=== PATIENT | male | born 1980 | race Caucasian/White ===

== ENCOUNTER 2018-06-25 18:12 | Emergency (ER) | payer BC ==
[~2018-06-25] VITALS: Ht 177.8 cm; Wt 141.1 kg
[2018-06-25 18:15] VITALS: BP 142/90
--- NOTE | 2018-06-25 18:17 | NUR ---
38/M C/O STUCK QTIP TO RT EAR DURING CLEANING HIS EARS TODAY. DENIES HEARING LOSS. C/O MILD EARACHE. PMH: ASTHMA
--- NOTE | 2018-06-25 19:39 | NUR ---
Patient discharged with v/s stable. Written and verbal after care instructions given and explained BY DR MARCUS. Patient verbalized understanding. Ambulatory with steady gait. All questions addressed prior to discharge. Advised to follow up with PMD.
[2018-06-25 19:40] VITALS: BP 130/78
== END 2018-06-25 19:39 | disposition home or self-care (01) ==
LOC: MED 18:12
DX: T16.1XXA Foreign body in right ear, initial encounter (principal); R51 Headache; J45.909 Unspecified asthma, uncomplicated; X58.XXXA Exposure to other specified factors, initial encounter
CPT/HCPCS: 69200; 99284

== ENCOUNTER 2022-04-12 20:26 | Emergency (ER) | payer OTHER ==
[~2022-04-12] VITALS: Ht 172.7 cm; Wt 128.8 kg
[2022-04-12 20:45] VITALS: BP 139/88
--- NOTE | 2022-04-12 20:53 | NUR ---
pt to lobby
--- NOTE | 2022-04-13 00:21 | NUR ---
pt ambulated to chair c
[2022-04-13 00:25] VITALS: BP 152/95
--- NOTE | 2022-04-13 00:26 | NUR ---
pt reports 9/10 lt shoulder and lt knee pain, increased from traige. Dr. Márquez made aware of patient condition.
[2022-04-13] MEDS ORDERED: KETOROLAC 30 MG/ML VIAL IM ONE (00:30)
--- NOTE | 2022-04-13 00:38 | NUR ---
Patient being evaluated by physician at bedside.
[2022-04-13] MEDS ORDERED: NAPR-54 PO (00:58)
[2022-04-13] MEDS ORDERED: CYCL-711 PO (00:58)
--- NOTE | 2022-04-13 01:03 | NUR ---
Patient discharged with v/s stable. Written and verbal after care instructions given and explained. Patient alert, oriented and verbalized understanding of instructions. Ambulatory with steady gait. All questions addressed prior to discharge. ID band removed. Patient advised to follow up with PMD. Rx of FLEXERIL AND NAPROSYN given. Patient educated on indication of medication including possible reaction and side effects. Opportunity to ask questions provided and answered.
== END 2022-04-13 01:03 | disposition home or self-care (01) ==
LOC: MED 20:26
DX: S46.912A Strain of unspecified muscle, fascia and tendon at shoulder and upper arm level, left arm, initial encounter (principal); S83.92XA Sprain of unspecified site of left knee, initial encounter; J45.909 Unspecified asthma, uncomplicated; Z98.890 Other specified postprocedural states; Z79.899 Other long term (current) drug therapy; Z79.1 Long term (current) use of non-steroidal anti-inflammatories (NSAID); V43.92XA Unspecified car occupant injured in collision with other type car in traffic accident, initial encounter; Y93.89 Activity, other specified; Y92.410 Unspecified street and highway as the place of occurrence of the external cause; Y99.8 Other external cause status
CPT/HCPCS: 73030; 73562; 96372; 99284; J1885